=== PATIENT | male | born 1965 | race Caucasian/White ===

== ENCOUNTER 2019-08-16 12:51 | Emergency (ER) | payer BC ==
[2019-08-16] MEDS ORDERED: IPRATROPIUM/ALBUTEROL (0.5MG/3MG) NEB INH ONE (13:38)
--- NOTE | 2019-08-16 13:44 | Emergency Department Record ---
History of Present Illness - General Chief Complaint: Cough Stated Complaint: CONGESTION, COUGH Time Seen by Provider: 08/16/19 13:25 Source: Patient, Family Mode of Arrival: Ambulatory Limitations: No limitations - History of Present Illness Initial Comments: The patient is here due to a 3 week hx of cough, congestion, and wheezing. He does have a hx of mild asthma and feels like the coughing has been worsening the last few days. He did talk to a Teledoc a few weeks ago and was placed on Augmentin and oral Steroids and is not better now. The patient does have intermittent sputum production but denies any fevers, CP or vomiting. MD Complaint: Cough, Nasal congestion, Rhinorrhea Onset/Timin -: Week(s) Severity: Moderate Severity scale (1-10): 6 Consistency: Constant, Intermittent - Related Data Home Medications Medication Instructions Recorded Confirmed Last Taken Albuterol Sulfate [Proair Hfa] 1 - 2 puff IH .EVERY 4-6 HOURS PRN 08/16/19 08/16/19 1 Day Ago ~08/15/19 Aspirin [Aspirin EC] 81 mg PO DAILY 08/16/19 08/16/19 1 Day Ago ~08/15/19 Atenolol [Tenormin] 50 mg PO DAILY 08/16/19 08/16/19 1 Day Ago ~08/15/19 Azilsartan Medoxomil [Edarbi] 80 mg PO DAILY 08/16/19 08/16/19 1 Day Ago ~08/15/19 Cholecalciferol (Vitamin D3) 10,000 unit PO DAILY 08/16/19 08/16/19 1 Day Ago [Vitamin D3] ~08/15/19 Metformin HCl [Metformin HCl ER] 500 mg PO DAILY 08/16/19 08/16/19 1 Day Ago ~08/15/19 Omeprazole 40 mg PO DAILY 08/16/19 08/16/19 1 Day Ago ~08/15/19 Rosuvastatin Calcium [Crestor] 5 mg PO DAILY 08/16/19 08/16/19 1 Day Ago ~08/15/19 Tamsulosin HCl [Flomax] 0.4 mg PO DAILY 08/16/19 08/16/19 1 Day Ago ~08/15/19 Previous Rx's Medication Instructions Recorded Azithromycin [Zithromax] 250 mg PO DAILY #4 tab 08/16/19 Prednisone [Prednisone 20Mg] 40 mg PO DAILY #8 tab 08/16/19 Allergies Allergy/AdvReac Type Severity Reaction Status Date / Time azilsartan [From Edarbyclor] Allergy ABDOMINAL Verified 08/16/19 14:10 PAIN chlorthalidone Allergy ABDOMINAL Verified 08/16/19 14:10 [From Edarbyclor] PAIN Travel Screening - Travel/Exposure Within Last 30 Days Have you traveled within the last 30 days?: No - Travel/Exposure Within Last Year Have you traveled outside the [place] in the last year?: No - Additonal Travel Details Have you been exposed to anyone with a communicable illness?: No - Travel Symptoms Symptom Screening: None Review of Systems Constitutional: Reports: Malaise. Denies: Chills, Fever Eyes: Denies: Eye discharge ENT: Reports: Congestion Respiratory: Reports: Cough, Dyspnea. Denies: Hemoptysis Cardiovascular: Denies: Arrhythmia, Chest pain Endocrine: Reports: Fatigue Gastrointestinal: Denies: Nausea Genitourinary: Denies: Dysuria Musculoskeletal: Denies: Arthralgia Skin: Denies: Bruising Past Medical History - SOCIAL HISTORY Smoking Status: Never smoker Alcohol Use: Rare Drug Use: None - RESPIRATORY Hx Respiratory Disorders: Yes Hx Asthma: Yes (seasonal) - CARDIOVASCULAR Hx Cardio Disorders: Yes Hx Hypertension: Yes - NEURO Hx Neuro Disorders: Yes - GI Hx GI Disorders: Yes Hx Reflux: Yes - Hx Genitourinary Disorders: Yes Comment:: dysuria - ENDOCRINE Hx Endocrine Disorders: Yes Hx Diabetes: Yes (Pre) - MUSCULOSKELETAL Hx Musculoskeletal Disorders: No - PSYCH Hx Psych Problems: No Family Medical History Any Significant Family History?: Yes Physical Exam - General General Appearance: Alert, Oriented x3, Cooperative, No acute distress - Head Head exam: Atraumatic, Normocephalic, Normal inspection - Eye Eye exam: Normal appearance, PERRL, EOMI - ENT Throat exam: Normal inspection. negative: Tonsillar erythema, Tonsillar exudate - Neck Neck exam: Normal inspection, Full ROM. negative: Tenderness - Respiratory Respiratory exam: Wheezes (only in the lower lobes.). negative: Normal lung sounds bilaterally, Accessory muscle use, Decreased breath sounds - Cardiovascular Cardiovascular Exam: Regular rate, Normal rhythm, Normal heart sounds - GI/Abdominal GI/Abdominal exam: Soft, Normal bowel sounds. negative: Tenderness - Extremities Extremities exam: Normal inspection, Full ROM, Normal capillary refill. negative: Tenderness - Neurological Neurological exam: Alert. negative: Motor sensory deficit Course Vital Signs 08/16/19 13:14 Temperature 98.0 F Pulse Rate 68 Respiratory 20 Rate Blood Pressure 147/90 Pulse Ox 96 - Reevaluation(s) Reevaluation #1: The patient is doing a lot better at this time. He is breathing much better and has very good aeration with no wheezing at this time. 08/16/19 14:37 Reevaluation #2: The patient is doing a lot better at this time. His breathing is much improved and his lungs are clear on exam. I did discuss the CT findings at length and the patient is aware of the need for the EGD and seeing a GI doctor and also a repeat chest CT. I did give him the CT report and he will get it to Dr. Acosta. The patient does have a hx of an esophageal motility disorder so the CT findings of the esophagus are most likely chronic in nature. 08/16/19 15:41 Medical Decision Making - Data Complexity MDM Data: Labs Ordered and/or Reviewed, X-Ray Ordered and/or Reviewed - Lab Data Result diagrams: 08/16/19 13:55 08/16/19 13:55 - Radiology Data Radiology results: Report reviewed (CXR: possible infiltrate Chest CT: poss reactive hilar nodes and esophageal abnormality. Rec F/U.) Disposition Disposition: Discharge Clinical Impression: Asthmatic bronchitis Qualifiers: Asthma severity: mild Asthma persistence: intermittent Asthma complication type: with acute exacerbation Qualified Code(s): J45.21 - Mild intermittent asthma with (acute) exacerbation Disposition: Home, Self-Care Condition: (2) Stable Instructions: Reactive Airways Disease (ED) Additional Instructions: Please continue your inhaller and please see your doctor next week for recheck and to have the CT report followed up. Continue the Prednisone and Zithromax as directed and please see the GI doctor also for an EGD. Return to the ER for any worsening symptoms. Prescriptions: Prednisone [Prednisone 20Mg] 40 mg PO DAILY #8 tab Azithromycin [Zithromax] 250 mg PO DAILY #4 tab Referrals: [facility] [Provider Group] Forms: Patient Portal Access Time of Disposition: 15:40 Quality - Quality Measures Quality Measures: N/A - Blood Pressure Screening View Details: Yes Does Patient Have Any of the Following: Active Dx of HTN Blood Pressure Classification: Hypertensive Reading Systolic Measurement: 147 Diastolic Measurement: 90 Screening for High Blood Pressure: Patient Exclusion, Hx of HTN [[id number]]
[2019-08-16] MEDS ORDERED: ALBUTEROL SULFATE (0.083%) 2.5 MG/3 ML NEB INH ONE (13:47)
[2019-08-16 14:01] LABS: BASO % 0.7 % (0-6); EOS % 6.8 % (0-6); GRAN % 66.8 % (47-80); HEMOGLOBIN 14.3 gm/dl (14.0-18.0); LYMPH % 18.7 % (16-45); MEAN CELL VOLUME 83.5 fl (81-97); MEAN CORPUSCULAR HEMOGLOBIN 26.5 pg (27-33); MEAN CORPUSCULAR HGB CONC 31.8 g/dl (32-36); MEAN PLATELET VOLUME 10.7 fl (7.4-10.4); PLATELET COUNT 191 K/uL (130-400); RED BLOOD COUNT 5.39 M/uL (4.40-5.70); RED CELL DISTRIBUTION WIDTH 13.8 % (11.5-14.5); WHITE BLOOD COUNT W/O DIFF 5.8 K/uL (4.2-12.2)
[2019-08-16 14:10] LABS: BLOOD UREA NITROGEN 16 mg/dL (6-20); EST GLOMERULAR FILTRATION RATE > 60 mL/min
[2019-08-16 14:13] LABS: GLUCOSE,RANDOM 131 mg/dL (74-109)
[2019-08-16] MEDS ORDERED: METHYLPREDNISOLONE PF 125MG/VIAL IVP ONE (14:17)
--- NOTE | 2019-08-16 14:18 | RADIOLOGY REPORT ---
EXAMINATION: Two View Chest Radiographs EXAM DATE: 08/16/2019 2:14 PM TECHNIQUE: Frontal and lateral views INDICATION: Cough COMPARISON: None ENCOUNTER: Not applicable FINDINGS: The cardiac silhouette is within normal limits. There is a nonspecific lucency projecting over the lynn perior mediastinum. No pneumothorax or pleural effusion. There is slight patchy bibasilar opacities. IMPRESSION: 1. Nonspecific lucency projecting over the superior mediastinum may be due to superimposed chest wall structures, dilation of the esophagus or pneumomediastinum. Further evaluation with chest CT is adilene mmended. 2. Slight patchy bibasilar opacity may be due to atelectasis, pneumonia or edema. Dictated by: Jagdish Cage on 08/16/2019 2:13 PM. .
[2019-08-16] MEDS ORDERED: AZITHROMYCIN 500 MG TABLET PO ONE (14:31)
[2019-08-16 14:35] LABS: C-REACTIVE PROTEIN 0.32 mg/dL (<0.5)
--- NOTE | 2019-08-16 15:16 | CT SCAN REPORT ---
EXAMINATION: CT Chest with IV Contrast EXAM DATE: 08/16/2019 3:03 PM TECHNIQUE: Standard protocol CT imaging of the chest with intravenous contrast was performed. Coronal and sagittal images were reconstructed. IV Contrast: The amount and type of contrast are recorded in the medical record. INDICATION: cough COMPARISON: Chest x-ray: 08/16/2019 ENCOUNTER: Not applicable CHEST FINDINGS: Base of Neck & Axillae: There is no adenopathy. Mediastinum & Stephania: There are multiple anterior mediastinal, AP window, and paratracheal lymph nodes the largest measuring 12 mm in short axis. There are subcarinal lymph nodes measuring 11 and 15 mm. A right hilar lymph node measures 12 mm in short axis. There are additional subcentimeter bilateral hi lar lymph nodes. There is moderate gaseous distention of the upper thoracic esophagus. There is some fluid and air in the lower one half of the esophagus. There is rather abrupt tapering with some soft tissue density wall thickening of the distal esophagus just above the GE junction. Cardiovascular: The heart has a normal size. There is no pericardial effusion. The thoracic aorta an d main pulmonary artery have a normal caliber. Tracheobronchial Structures: There is no bronchial wall thickening or bronchiectasis. Lung Parenchyma: There is no air-fluid level as fibronodular densities in the right upper lobe escape wheel tooth cutter iorly. There are 2 discrete nodules in the left midlung lateral to the hilum measuring 5 and 6 mm. Th ere is a 3 mm nodule in the superior segment of the left lower lobe. Pleural Space: There are no pleural effusions. There is no pneumothorax. Upper Abdomen: There are scattered well-defined fluid density hepatic cysts measuring 9 mm maximally. Chest Wall & Musculoskeletal: No suspicious bone lesions. IMPRESSION: 1. Mild nonspecific mediastinal and hilar lymphadenopathy. Metastatic disease or lymphoma is not excl uded although these could be reactive. Follow-up imaging is recommended to evaluate for stability. 2. There are a few small nonspecific left lung nodules measuring 6 mm maximally. Based upon Fleischne r guidelines: In a low risk patient follow-up CT in 3-6 months is recommended and then consider a fol low-up CT in 18-24 months. In a high-risk patient a follow-up CT should be performed at 3-6 months an d also at 18-24 months. 3. The esophagus is dilated and filled with air and fluid. There is circumferential soft tissue densi ty of the distal esophagus just above the GE junction. Malignancy should be excluded although this co uld represent a benign stricture as well. Direct visualization with potential for biopsy is recommend ed. If this did in fact represent an esophageal malignancy, the likelihood of metastatic disease as a n etiology of the mediastinal lymph nodes and pulmonary nodules would be increased. Dictated by: Teddy Lorenzo MD on 08/16/2019 3:04 PM. .
== END 2019-08-16 15:49 | disposition home or self-care (01) ==
LOC: ER 12:51
DX: J45.21 Mild intermittent asthma with (acute) exacerbation (principal); I10 Essential (primary) hypertension
CPT/HCPCS: 99284 ×2; 96374; 85025; 86140; 80048; 84145; 71046; 71260; 94640 ×2; Q9967; J2930; J7613

== ENCOUNTER 2019-08-30 06:58 | Day surgery (SDC) | payer BC, OTHER ==
[2019-08-30] MEDS ORDERED: PROPOFOL 10 MG/ML VIAL IV ONE (06:59)
[2019-08-30] MEDS ORDERED: LIDOCAINE 2% MDV (20MG/ML) 20ML VIAL IV ONE (06:59)
--- NOTE | 2019-08-31 09:21 | Operative Note ---
OPERATION: ESOPHAGOGASTRODUODENOSCOPY with biopsy. PREOPERATIVE DIAGNOSIS: Chronic heartburn and abnormal imaging. POSTOPERATIVE DIAGNOSES: 1. Irregular Z line. 2. Rule out short-segment Ren[place]'s. 3. Otherwise normal exam. No mass seen. PROCEDURE: After informed consent was obtained from the patient, he was placed in the left lateral decubitus position in the endoscopy suite, sedated and monitored by the department of anesthesia. Once sedated, a well-lubricated [id number] gastroscope was placed in the posterior oropharynx under direct visualization and passed to the proximal esophagus. The endoscope was advanced through the proximal, mid, and distal esophagus. There was a somewhat dilated appearing esophagus but no mass lesions were seen through the length of the esophagus. The GE junction demonstrated irregularity of the squamocolumnar border with no ulcers, erosions, strictures, varices, or masses were seen. The gastric body, antrum, pylorus, duodenal bulb and sweep were unremarkable. J-turn views of the gastric cardia and proximal stomach were unremarkable. The endoscope was straightened. GE junction was biopsied. The endoscope was removed from the patient and advanced through the esophagus and reinserted multiple times. No mass lesions or irregularity were seen other than this irregular squamocolumnar border. RECOMMENDATIONS: It sounds like the patient is having some breakthrough symptoms and as such, I would suggest he increase his omeprazole to 40 mg twice per day (before breakfast and dinner). Further recommendations will be forthcoming once tissue histology is available. As always, thank you for allowing me to participate in the healthcare of your patients. YOLA
== END 2019-08-30 09:03 | disposition home or self-care (01) ==
LOC: HOP 06:58
PROVIDERS: ATTEND Internal Medicine Gastroenterology
DX: R12 Heartburn (principal); R93.3 Abnormal findings on diagnostic imaging of other parts of digestive tract; K31.89 Other diseases of stomach and duodenum; K20.8 Other esophagitis; E11.9 Type 2 diabetes mellitus without complications; I10 Essential (primary) hypertension; E78.00 Pure hypercholesterolemia, unspecified; J45.909 Unspecified asthma, uncomplicated; N40.0 Benign prostatic hyperplasia without lower urinary tract symptoms